=== PATIENT | male | born 1990 | race Two or more races ===

== ENCOUNTER 2021-08-26 01:35 | Emergency (ER) | payer SELFPAY ==
[~2021-08-26] VITALS: Ht 182.9 cm; Wt 99.8 kg
--- NOTE | 2021-08-26 02:01 | NUR ---
PT BIBS C/O TESTICLE PAIN X1 WEEK, WITH BLOOD IN URINE. PATIENT ALERT AND ORIENTED X3. AMBULATRY WITH NON LABORED BREATHING. PLACED IN GOWN AND IN BED 09.
[2021-08-26 02:29] LABS: BILIRUBIN,URINE NEGATIVE (NEGATIVE); COLOR,URINE YELLOW (YELLOW); LEUKOCYTE ESTERASE ,URINE NEGATIVE (NEGATIVE); NITRITE, URINE NEGATIVE (NEGATIVE); PROTEIN,URINE NEGATIVE (NEGATIVE); UGLUCOSE NEGATIVE (NEGATIVE); UROBILINOGEN,URINE 0.2 EU/dL (0.2)
[2021-08-26 02:37] LABS: BACTERIA,URINE Few /HPF (None Seen); RBC,URINE 0-2 /HPF (0-2); SQUAMOUS EPITHELIAL CELL,UR Few /HPF (None Seen)
--- NOTE | 2021-08-26 02:45 | NUR ---
US AT BEDSIDE
[2021-08-26] MEDS ORDERED: DOXY100C2 PO (03:49)
[2021-08-26] MEDS ORDERED: CEFTRIAXONE 1 G VIAL ONE (04:21)
[2021-08-26] MEDS ORDERED: LIDOCAINE /MPF 1% VIAL 5 ML VIAL ONE (04:23)
[2021-08-26] MEDS ORDERED: CEFTRIAXONE 500 MG VIAL IM ONE (04:30)
--- NOTE | 2021-08-26 04:33 | NUR ---
Patient discharged to home in stable condition. Rx and Written and verbal after care instructions given. Patient verbalizes understanding of instruction.
[2021-08-26 04:34] VITALS: BP 135/76
== END 2021-08-26 04:34 | disposition home or self-care (01) ==
LOC: ER 01:38
DX: N45.1 Epididymitis (principal); Z60.2 Problems related to living alone
CPT/HCPCS: 76870; 81001; 87086; 96372; 99284; J0696; J3490